=== PATIENT | male | born 1960 | race Caucasian/White ===

== ENCOUNTER 2020-03-03 09:51 | Day surgery (SDC) | payer BC ==
[2020-03-03] MEDS ORDERED: Midazolam 1 MG/ML 2 ML SDV IV ONE (09:52)
[2020-03-03] MEDS ORDERED: fentaNYL 100 MCG/2 ML SDV IV ONE (09:52)
[2020-03-03] MEDS ORDERED: Sodium Chloride 0.9% 10 ML Syringe FLUSH PRN (10:00)
[2020-03-03] MEDS ORDERED: Lactated Ringers 1,000 ML IV PRN (10:00)
[2020-03-03] MEDS ORDERED: acetaZOLAMIDE 500 MG Cap.ER PO ONE (12:00)
--- NOTE | 2020-03-03 12:55 | OR ---
DATE OF OPERATION: 03/03/2020 SURGEON: Saige Armstrong MD PREOPERATIVE DIAGNOSIS: Visually significant cataract, right eye. POSTOPERATIVE DIAGNOSIS: Visually significant cataract, right eye. PROCEDURES PERFORMED: Phacoemulsification with intraocular lens placement, right eye. ASSISTANTS: None. ANESTHESIA: Local with sedation. COMPLICATIONS: None. BLOOD LOSS: None. IMPLANTS: Errol ACU0T0 25.0 diopter lens implanted. CDE: 0.20. DESCRIPTION OF PROCEDURE: After risks and benefits were reviewed with the patient, consent was obtained in the preoperative area, and the operative eye was marked with a surgical pen. In the preoperative area, a pledget was used to dilate the pupil consisting of a mixture of phenylephrine 10%, cyclopentolate 2%, moxifloxacin 0.5%, and bupivacaine 0.75%. The patient was taken to the operating room, where a time-out was performed, and the patient was placed under monitored anesthesia care. Topical tetracaine was used for anesthesia. The operative eye was prepped and draped for ophthalmic surgery, and the microscope was brought into position and focused. A paracentesis incision was made, followed by injection of preservative-free 1% lidocaine into the anterior chamber, followed by injection of Viscoat into the anterior chamber. A microkeratome blade was used to make a corneal limbal incision temporally. A cystotome was used to make the beginning of the capsulorrhexis, which was carried around 360 degrees in a curvilinear fashion using Utrata forceps. A Lima cannula with BSS was used to hydrodissect and hydrodelineate the nucleus. The nucleus was removed in a divide and conquer manner using phacoemulsification. Irrigation and aspiration were used to remove the remaining cortical material. Provisc was used to inflate the capsular bag, and a pre-loaded Errol ACU0T0 25.0 diopter lens, serial number [id number] was injected into the capsular bag. A Sinskey hook was used to position and center the lens. Next, irrigation and aspiration was used to remove any remaining viscoelastic and cortical material from the anterior chamber. BSS on a cannula was used to inflate the anterior chamber and hydrate the wound. The wound was checked and found to be watertight. 1 mg of Moxifloxacin was injected into the anterior chamber. Drapes were removed and the eye was cleaned. A drop of brimonidine 0.15% and a drop of TobraDex was placed. The eye was shielded, and the patient was taken to the recovery room in stable condition. /[id number] IVONE/GORAN
== END 2020-03-03 11:50 | disposition home or self-care (01) ==
LOC: FB.SDS 09:51
PROVIDERS: ATTEND Ophthalmology
DX: H25.813 Combined forms of age-related cataract, bilateral (principal); E78.2 Mixed hyperlipidemia; H35.073 Retinal telangiectasis, bilateral; H53.2 Diplopia; H49.11 Fourth [trochlear] nerve palsy, right eye; H52.03 Hypermetropia, bilateral; Z79.899 Other long term (current) drug therapy
CPT/HCPCS: 00142-QZ; A9270-GY; J2250; J3010; V2632

== ENCOUNTER 2020-03-17 07:24 | Day surgery (SDC) | payer BC ==
[2020-03-17] MEDS ORDERED: Midazolam 1 MG/ML 2 ML SDV IV ONE (07:25)
[2020-03-17] MEDS ORDERED: fentaNYL 100 MCG/2 ML SDV IV ONE (07:25)
[2020-03-17] MEDS ORDERED: Lactated Ringers 1,000 ML IV PRN (07:30)
[2020-03-17] MEDS: Sodium Chloride 0.9% 10 ML Syringe FLUSH PRN (07:57)
[2020-03-17] MEDS: acetaZOLAMIDE 500 MG Cap.ER PO ONE (09:41)
--- NOTE | 2020-03-17 10:31 | OR ---
DATE OF OPERATION: 03/17/2020 SURGEON: Saige Armstrong MD PREOPERATIVE DIAGNOSIS: Visually significant cataract, left eye. POSTOPERATIVE DIAGNOSIS: Visually significant cataract, left eye. PROCEDURES PERFORMED: Phacoemulsification with intraocular lens placement, left eye. ASSISTANTS: None. ANESTHESIA: Local with sedation. COMPLICATIONS: None. BLOOD LOSS: None. IMPLANTS: Errol ACU0T0 25.0 diopter lens implanted. CDE: 0.22. DESCRIPTION OF PROCEDURE: After risks and benefits were reviewed with the patient, consent was obtained in the preoperative area, and the operative eye was marked with a surgical pen. In the preoperative area, a pledget was used to dilate the pupil consisting of a mixture of phenylephrine 10%, cyclopentolate 2%, moxifloxacin 0.5%, and bupivacaine 0.75%. The patient was taken to the operating room, where a time-out was performed, and the patient was placed under monitored anesthesia care. Topical tetracaine was used for anesthesia. The operative eye was prepped and draped for ophthalmic surgery, and the microscope was brought into position and focused. A paracentesis incision was made, followed by injection of preservative-free 1% lidocaine into the anterior chamber, followed by injection of Viscoat into the anterior chamber. A microkeratome blade was used to make a corneal limbal incision temporally. A cystotome was used to make the beginning of the capsulorrhexis, which was carried around 360 degrees in a curvilinear fashion using Utrata forceps. A [place] cannula with BSS was used to hydrodissect and hydrodelineate the nucleus. The nucleus was removed in a divide and conquer manner using phacoemulsification. Irrigation and aspiration were used to remove the remaining cortical material. Provisc was used to inflate the capsular bag, and a pre-loaded Errol ACU0T0 25.0 diopter lens, serial number [id number] was injected into the capsular bag. A Sinskey hook was used to position and center the lens. Next, irrigation and aspiration was used to remove any remaining viscoelastic and cortical material from the anterior chamber. BSS on a cannula was used to inflate the anterior chamber and hydrate the wound. The wound was checked and found to be watertight. 1 mg of Moxifloxacin was injected into the anterior chamber. Drapes were removed and the eye was cleaned. A drop of brimonidine 0.15% and a drop of TobraDex was placed. The eye was shielded, and the patient was taken to the recovery room in stable condition. /[id number] IVONE/GORAN
== END 2020-03-17 10:05 | disposition home or self-care (01) ==
LOC: FB.SDS 07:24
PROVIDERS: ATTEND Ophthalmology
DX: H25.813 Combined forms of age-related cataract, bilateral (principal); H35.073 Retinal telangiectasis, bilateral; H53.2 Diplopia; H49.11 Fourth [trochlear] nerve palsy, right eye; E78.2 Mixed hyperlipidemia; Z79.899 Other long term (current) drug therapy; Z79.82 Long term (current) use of aspirin; Z88.8 Allergy status to other drugs, medicaments and biological substances
CPT/HCPCS: 00142-QZ; A9270-GY; J2250; J3010; V2632

== ENCOUNTER 2021-05-01 18:26 | Emergency (ER) | payer BC ==
[2021-05-01] MEDS ORDERED: Acetaminophen/HYDROcodone 325-5 MG Tab PO ONE (18:27)
[2021-05-01] MEDS ORDERED: Cyclobenzaprine 10 MG Tab PO ONE (18:27)
[2021-05-01] MEDS: Ketorolac 30 MG/ML SDV IM ONE (19:58)
== END 2021-05-01 20:05 | disposition home or self-care (01) ==
LOC: FB.ED 18:26
DX: M62.830 Muscle spasm of back (principal); E78.00 Pure hypercholesterolemia, unspecified; E03.9 Hypothyroidism, unspecified; Z88.8 Allergy status to other drugs, medicaments and biological substances; Z79.82 Long term (current) use of aspirin; Z79.899 Other long term (current) drug therapy
CPT/HCPCS: 96372; 99282; 99283; A9270-GY; J1885

== ENCOUNTER 2022-07-28 06:39 | Day surgery (SDC) | payer BC, OTHER ==
[2022-07-28] MEDS ORDERED: Midazolam 1 MG/ML 2 ML SDV IV ONE (06:40)
[2022-07-28] MEDS ORDERED: Ketamine 500 mg/10 ML MDV IV ONE (06:40)
[2022-07-28] MEDS ORDERED: Glycopyrrolate 0.2 MG/ML 5 ML MDV IV ONE (06:40)
[2022-07-28] MEDS ORDERED: Lidocaine 2% 5 ML SDV IV ONE (06:40)
[2022-07-28] MEDS ORDERED: Propofol 200 MG/20 ML SDV IV ONE (06:40)
[2022-07-28] MEDS ORDERED: Sodium Chloride 0.9% 10 ML Syringe FLUSH PRN (06:45)
[2022-07-28] MEDS ORDERED: Lactated Ringers 1,000 ML IV SCH (06:45)
== END 2022-07-28 09:42 | disposition home or self-care (01) ==
LOC: FB.SDS 06:39
PROVIDERS: ATTEND Surgery
DX: K29.51 Unspecified chronic gastritis with bleeding (principal); K21.00 Gastro-esophageal reflux disease with esophagitis, without bleeding; K29.80 Duodenitis without bleeding; K31.89 Other diseases of stomach and duodenum; K22.89 Other specified disease of esophagus; E78.00 Pure hypercholesterolemia, unspecified; E03.9 Hypothyroidism, unspecified; E66.9 Obesity, unspecified; Z68.33 Body mass index [BMI] 33.0-33.9, adult; Z79.899 Other long term (current) drug therapy; Z88.8 Allergy status to other drugs, medicaments and biological substances
CPT/HCPCS: 00812; 43239; 88305; 88342; J2250; J2704; J3490; J7120

== ENCOUNTER 2024-01-12 06:28 | Day surgery (SDC) | payer OTHER ==
[2024-01-12] MEDS ORDERED: Ketamine 500 mg/10 ML MDV IV ONE (06:29)
[2024-01-12] MEDS ORDERED: Propofol 200 MG/20 ML SDV IV ONE (06:29)
[2024-01-12] MEDS ORDERED: Phenylephrine 0.5% Nasal Spray 15 ML Bot NAS ONE (06:29)
[2024-01-12] MEDS ORDERED: Midazolam 1 MG/ML 2 ML SDV IV ONE (06:29)
[2024-01-12] MEDS ORDERED: Sodium Chloride 0.9% 10 ML Syringe FLUSH PRN (06:45)
[2024-01-12] MEDS: Lactated Ringers 1,000 ML IV SCH (07:29)
[2024-01-12] MEDS: Simethicone Drops 40 MG/0.6 ML 30 ML Bottle ONE (07:39)
== END 2024-01-12 09:15 | disposition home or self-care (01) ==
LOC: FB.SDS 06:28
PROVIDERS: ATTEND Surgery
DX: Z12.11 Encounter for screening for malignant neoplasm of colon (principal); K57.30 Diverticulosis of large intestine without perforation or abscess without bleeding; K21.9 Gastro-esophageal reflux disease without esophagitis; E78.5 Hyperlipidemia, unspecified; E66.9 Obesity, unspecified
CPT/HCPCS: 00811; 88305; A9270-GY; J2250; J2704; J3490; J7120

== ENCOUNTER 2025-01-01 06:15 | Day surgery (SDC) | payer BC, OTHER ==
[~2025-01-01 06:15] MED LIST: Sodium Chloride 0.9% 10 ML Syringe FLUSH PRN
[2025-01-01] MEDS ORDERED: diphenhydrAMINE 50 MG/ML SDV IVPUSH ONE (06:16)
[2025-01-01] MEDS ORDERED: Ketorolac 30 MG/ML SDV IVPUSH ONE (06:16)
[2025-01-01] MEDS ORDERED: fentaNYL 100 MCG/2 ML SDV IV ONE (06:16)
[2025-01-01] MEDS ORDERED: Dexamethasone 4 MG/ML 5 ML MDV IVPUSH ONE (06:16)
[2025-01-01] MEDS ORDERED: Propofol 200 MG/20 ML SDV IV ONE (06:16)
[2025-01-01] MEDS ORDERED: Midazolam 1 MG/ML 2 ML SDV IV ONE (06:16)
[2025-01-01] MEDS ORDERED: Ondansetron 4 MG/2 ML SDV IVPUSH ONE (06:16)
[2025-01-01] MEDS: Lactated Ringers 1,000 ML IV SCH (07:22)
[2025-01-01] MEDS: Lidocaine 1% with EPINEPHrine 1:100,000 20 ML MDV INJECT ONE (07:56)
== END 2025-01-01 10:50 | disposition home or self-care (01) ==
LOC: FB.SDS 06:15
PROVIDERS: ATTEND Surgery
DX: K40.90 Unilateral inguinal hernia, without obstruction or gangrene, not specified as recurrent (principal); D17.6 Benign lipomatous neoplasm of spermatic cord; E66.9 Obesity, unspecified; Z88.8 Allergy status to other drugs, medicaments and biological substances; Z68.27 Body mass index [BMI] 27.0-27.9, adult; Z79.899 Other long term (current) drug therapy
CPT/HCPCS: 00830; 49505; 55520; 88302; A9270; C1781; J0665; J0690; J1100; J1200; J1885; J2003; J2004; J2250; J2405; J2704; J3010; J7120